=== PATIENT | male | born 1995 | race African-American/Black ===

== ENCOUNTER 2019-01-18 15:12 | Emergency (ER) | payer SELFPAY ==
[~2019-01-18] VITALS: Ht 193 cm; Wt 149.7 kg
[2019-01-18 15:22] VITALS: BP 141/71
[2019-01-18] MEDS ORDERED: IBUPROFEN 400 MG TABLET PO ONE (16:00)
[2019-01-18] MEDS ORDERED: IBUPROFEN 400 MG TABLET ONE (16:09)
== END 2019-01-18 16:49 | disposition home or self-care (01) ==
LOC: ER 15:14
DX: S63.592A Other specified sprain of left wrist, initial encounter (principal); S39.012A Strain of muscle, fascia and tendon of lower back, initial encounter; V49.59XA Passenger injured in collision with other motor vehicles in traffic accident, initial encounter; Y93.89 Activity, other specified; Y92.413 State road as the place of occurrence of the external cause; Y99.8 Other external cause status
CPT/HCPCS: 72100; 73110; 99283; A4606